=== PATIENT | female | born 1970 | race Caucasian/White ===

== ENCOUNTER 2019-05-29 20:45 | Emergency (ER) | payer OTHER ==
[~2019-05-29] VITALS: Ht 152.4 cm; Wt 61.2 kg
[2019-05-29] MEDS ORDERED: TIROSINT88 MCG PO (21:00)
[2019-05-29] MEDS ORDERED: CLONIDINE HCL0.2 M2 PO (21:00)
[2019-05-29] MEDS ORDERED: SIMVASTATIN80 MG PO (21:00)
[2019-05-29] MEDS ORDERED: DESYREL150 MG PO (21:00)
[2019-05-30 00:16] VITALS: BP 134/80
== END 2019-05-30 00:17 | disposition home or self-care (01) ==
LOC: M.ERS 20:45
DX: S01.112A Laceration without foreign body of left eyelid and periocular area, initial encounter (principal); S60.410A Abrasion of right index finger, initial encounter; S60.412A Abrasion of right middle finger, initial encounter; S60.414A Abrasion of right ring finger, initial encounter; W01.0XXA Fall on same level from slipping, tripping and stumbling without subsequent striking against object, initial encounter; Y93.89 Activity, other specified; Y92.89 Other specified places as the place of occurrence of the external cause; Y99.8 Other external cause status